=== PATIENT | female | born 1945 | race Two or more races ===

== ENCOUNTER → 2024-07-09 | Outpatient (CLI) | payer MEDICARE, MEDICAID, SELFPAY ==
--- NOTE | 2024-07-09 09:21 | XR_ITS ---
Examination: PA lateral chest 2 views TECHNIQUE: Upright PA lateral chest 2 views Exam date and time: July 09, 2024 0947 hours Comparison August 16, 2019 INDICATIONS: Coughing beginning 3 days ago. FINDINGS: Minimal prominence left ventricle Accentuation basilar bronchovascular markings No lobar pneumonia or pulmonary edema IMPRESSION: Basilar bronchitis pattern
[2024-07-09 10:21] LABS: Basophils % (Auto) 1 % (0-2.5); Eosinophils # (Auto) 0.2 Thou/mm3 (0.0-0.5); Eosinophils % (Auto) 3 % (0-10); Hematocrit 44.2 % (36.0-46.0); Hemoglobin 14.8 g/dL (12.0-16.0); Immature Granulocytes % (Auto) 0 % (0-0); Immature Granulocytes Auto 0.03 Thou/mm3 (0.00-0.00); Lymphocytes # (Auto) 1.8 Thou/mm3 (1.0-4.8); Lymphocytes % (Auto) 25 % (10-50); Mean Corpuscular HGB Conc 33.5 g/dl (31.0-37.0); Mean Corpuscular Hemoglobin 26.8 pg (25.0-35.0); Mean Corpuscular Volume 80 fL (80-100); Monocytes # (Auto) 0.6 Thou/mm3 (0.0-0.8); Monocytes % (Auto) 8 % (0-12); Neutrophils # (Auto) 4.5 Thou/mm3 (1.8-7.7); Neutrophils % (Auto) 63 % (37-80); Nucleated Red Blood Cell % 0 /100 WBC (0); Platelet Count 395 Thou/mm3 (140-440); RDW Standard Deviation 39.8 fL (36.4-46.3); Red Blood Count 5.53 Miln/mm3 (4.00-5.20); White Blood Count 7.2 Thou/mm3 (3.6-11.0)
[2024-07-09 10:44] LABS: Alanine Aminotransferase 20 U/L (10-49); Albumin, Serum 4.6 gm/dL (3.4-4.8); Albumin/Globulin Ratio 1.6 (1.2-2.2); Alkaline Phosphatase 119 U/L (46-116); Anion Gap 10 (7-16); Aspartate Amino Transferase 16 U/L (0-34); BUN/Creatinine Ratio 24 Ratio (12-20); Bilirubin,Total 0.5 mg/dL (0.3-1.2); Blood Urea Nitrogen 17 mg/dL (9-23); Carbon Dioxide 32.6 mMol/L (20.0-31.0); Chloride 98 mMol/L (98-107); Creatinine (Component) 0.7 mg/dL (0.6-1.3); Globulin 2.9 gm/dL (2.3-3.5); Glucose 114 mg/dL (74-106); Osmolality,Calculated 283 (275-295); Sodium 141 mMol/L (136-145); Total Protein 7.5 gm/dL (5.7-8.2); eGFR > 60 See Note
== END | disposition home or self-care (01) ==
LOC: CDIM 09:08 → COPL 09:55
PROVIDERS: PCP Family Medicine; Referring Provider Nurse Practitioner Family; Visit Provider Radiology Diagnostic Radiology
DX: R05.3 Chronic cough (principal); I10 Essential (primary) hypertension
CPT/HCPCS: 36415; 71046; 80053; 85025

== ENCOUNTER 2024-09-30 17:56 | Emergency (ER) | payer MEDICARE, MEDICAID, SELFPAY ==
[2024-09-30 19:05] VITALS: BP 130/77; PULSE 84; RESP 18; TEMP 36.6; O2SAT 95; BMI 36.6
--- NOTE | 2024-09-30 19:33 | XR_ITS ---
Examination: PA chest single view Technique: Upright PA chest single view Exam date and time: September 30, 20244 hrs. Indications: Chest pain today. Findings: Mild enlargement left ventricle Moderate vascular congestion. No lobar pneumonia Significant osteopenia Impression: Moderate vascular congestion
--- NOTE | 2024-09-30 19:33 | XR_ITS ---
Examination: CT abdomen and pelvis without contrast. Coronal 3-D reconstructions. Sagittal 2-D reconstructions. Date and time of exam:September 30, 2024 at 2000 hrs. Indications: Onset left flank pain today CTDI: vol (mGy): 9.04 DLP: (mGycm): 524 Technique: Axial images of the abdomen have been obtained, 3 mm slice thickness Intravenous contrast material has not been administered. Low dose protocols were performed. One or more of the following dose reduction techniques were used; automated exposure control, adjustment of the mA and/or KV according to patient size, use of iterative reconstruction technique. Findings: No focal liver or splenic lesions Absent gallbladder No pancreatic or adrenal mass No renal or ureteral calculi, no hydronephrosis 10 mm fat-containing umbilical hernia No pericecal inflammatory change No bowel obstruction or diverticulitis No bladder mass or bladder calculi Grade 1 anterolisthesis L4 on L5 Retroverted uterus Impression: No renal or ureteral calculi, no hydronephrosis No CT findings of appendicitis bowel obstruction or diverticulitis No bladder mass or bladder calculi
--- NOTE | 2024-09-30 19:33 | EKG_ITS ---
[facility] Test Date: 2024-09-30 Pat Name: MINE TRINH Department: Room: - Gender: Female Senior Cytotechnologist: : 1945 Requested By: Dustin Espinal Order Number: [id number] Reading MD: Dustin Espinal Measurements Intervals [place] Rate: 72 P: 23 NC: 180 QRS: -14 QRSD: 88 T: 16 QT: 364 QTc: 399 Interpretive Statements SINUS RHYTHM LOW QRS VOLTAGE IN PRECORDIAL LEADS [QRS DEFLECTION < 1.0 mV IN CHEST LEADS] POSSIBLE ANTERIOR MYOCARDIAL INFARCTION , PROBABLY OLD [30 ms Q WAVE IN V3/V4, OR R < 0.2 mV IN V4] Compared to ECG 02/24/2023 18:54:15 Low QRS voltage now present Myocardial infarct finding still present /store/S0/[id number].pdf
--- NOTE | 2024-09-30 19:38 | PD.EDBACK ---
ED Back Injury Pain RME/HPI General Chief Complaint: Back Pain/Injury Stated Complaint: LEFT BACK PAIN X YESTERDAY Time Seen by Provider: 09/30/24 19:33 Arrival date/time: 09/30/24 17:56 78F with history of HTN, DM, and dementia presents to ED with L flank pain for 2 days. Patient denies fall/trauma, hematuria/dysuria, weakness, N/V, CP, SOB, and bowel/bladder incontinence. Pain is worse with ROM. Patient went to clinic and was given Tylenol #3 w/o relief. Limitations: no limitations Related Data Previous Rx's ?Medication ?Instructions ?Recorded naproxen 500 mg tablet (Naprosyn) 500 mg PO BID PRN pain #30 tabs 10/31/19 tramadol 37.5 mg-acetaminophen 325 1 tab PO TID PRN pain #20 tabs 05/18/20 mg tablet Allergies Allergy/AdvReac Type Severity Reaction Status Date / Time shrimp Allergy Unknown Verified 09/30/24 18:02 Review of Systems Review of Systems Systems Reviewed: All systems reviewed, normal except as documented Constitutional Constitutional: Reports system reviewed and no additional complaints, except as documented, Denies fever(s) and Denies headache(s) ENT Ears, Nose, Mouth, and Throat: Denies disequilibrium and Denies headache(s) Cardiovascular Cardiovascular: Reports system reviewed and no additional complaints, except as documented, Denies chest pain and Denies dyspnea Respiratory Respiratory: Reports system reviewed and no additional complaints, except as documented, Denies cough and Denies dyspnea Gastrointestinal Gastrointestinal: Reports system reviewed and no additional complaints, except as documented, Denies abdominal pain, Denies nausea and Denies vomiting Musculoskeletal Musculoskeletal: Reports back pain Neurologic Neurologic: Reports system reviewed and no additional complaints, except as documented, Denies confusion, Denies disequilibrium and Denies headache(s) Psychiatric Psychiatric: Denies confusion Past Medical History Past Medical History CARDIAC: Positive Hypertension; Negative Cardiac Disorders or Congestive Heart Failure RESPIRATORY: Negative Chronic Obstructive Pulmonary Disease (COPD) or Asthma GENITOURINARY: Negative Renal Disease MUSCULOSKELETAL: Positive Musculoskeletal Disorders and Arthritis ENDOCRINE: Positive Diabetes Mellitus Type 2 HEMATOLOGIC: Negative Sickle Cell Disease Social History SMOKING STATUS: Never smoker ED Exam General Limitations: Present no limitations General appearance: Present alert and in no apparent distress Head Head exam: Present atraumatic Eye Eye exam: Present normal appearance, PERRL and EOMI ENT ENT exam: Present normal exam, normal oropharynx and mucous membranes moist Neck Neck exam: Present normal inspection, full ROM and trachea midline Chest Chest inspection: Present normal inspection and symmetric chest wall rise Respiratory Respiratory exam: Present normal lung sounds bilaterally Cardiovascular Cardiovascular exam: Present regular rate, normal rhythm and normal heart sounds Abdominal Exam Abdominal exam: Present soft and normal bowel sounds Extremities Exam Extremities exam: Present normal inspection and full ROM Back Exam Back exam: Present full ROM and tenderness Neurological Exam Neurological exam: Present alert, oriented X3 and CN II-XII intact Psychiatric Psychiatric exam: Present normal affect and normal mood Skin Skin exam: Present warm, dry, intact and normal color Course Quality Measures none Orders Category Date Time Status EKG (ED ONLY) *Do not use* NOW Care 09/30/24 19:[address] abdomen pelvis wo con Stat Exams 09/30/24 19:33 Completed EKG (ED Only) Stat Exams 09/30/24 19:33 Draft XR chest 1V portable Stat Exams 09/30/24 19:33 Completed CBC Stat Lab 09/30/24 19:48 Completed Comprehensive Metabolic Panel Stat Lab 09/30/24 19:48 Completed Troponin I Stat Lab 09/30/24 19:48 Completed Urinalysis Stat Lab 09/30/24 20:10 Completed CYCLObenzaPRINE [Flexeril] Med 09/30/24 19:33 Discontinued 5 mg PO X1 ONE Naproxen [Naprosyn] Med 09/30/24 19:33 Discontinued 500 mg PO X1 ONE Vital Signs Vital signs: Vital Signs Temperature 98 F 09/30/24 19:05 Pulse Rate 84 09/30/24 19:05 Respiratory Rate 18 09/30/24 19:05 Blood Pressure 130/77 09/30/24 19:05 Pulse Oximetry (%) 95 09/30/24 19:05 Oxygen Delivery Method Room Air 09/30/24 19:05 O2 at 95% on RA and WNLs Back Pain / Injury MDM Narrative MDM Narrative:: 78F with history of HTN, DM, and dementia presents to ED with L flank pain for 2 days. Patient denies fall/trauma, hematuria/dysuria, weakness, N/V, CP, SOB, and bowel/bladder incontinence. Pain is worse with ROM. Patient went to clinic and was given Tylenol #3 w/o relief. Physical exam reveals mild L flank tenderness. Pain is also with ROM, which is intact. Normal WOB. Patient is afebrile, calm, and alert. CT no acute abnormalities. EKG NSR. CXR unremarkable. Trop normal. No leukocytosis. K mildly low, but appears to be chronic based on previous values. UA clean. Likely MSK-related. Meds improved symptoms. Patient data External records reviewed:: [facility] previous records Clinical information provided by:: patient Social determinants that could affect healthcare access:: none Patient has the following chronic illnesses:: HTN, DM, and dementia How is presenting disease/condition affected by chronic disease/condition?: exacerbated by Evaluation data The following diagnostics were reviewed and interpreted by me:: lab results, radiology exam(s) and EKG tracing(s) Lab and/or radiology exams considered but not ordered:: ordered Interpretation Summary: above Medications / Prescriptions Medications or Prescriptions considered but not ordered:: ordered Medication administrations:: Medication Administration History Discontinued Medications Cyclobenzaprine HCl (Cyclobenzaprine 5 Mg Tablet) 5 mg PO X1 ONE Stop: 09/30/24 19:34 Last Admin: 09/30/24 20:22 Dose: 5 mg Documented By: CHRIS Naproxen (Naproxen 250 Mg Tablet) 500 mg PO X1 ONE Stop: 09/30/24 19:34 Last Admin: 09/30/24 20:23 Dose: 500 mg Documented By: CHRIS above Consultations Consultation(s) initiated? (list below): No Diagnosis Differential diagnosis back pain/injury: lumbar radiculopathy, sciatica, strain of lumbar region, renal colic, pyelonephritis, thoracic back pain, AAA, discitis and other (kidney stone, UTI, ACS, back pain) Most likely diagnosis given after review of the tests above:: back pain Admission Indicated Admission indicated?: not indicated Admission Request Was there a request for admission?: No Disposition Plan Disposition Plan: Discharge Discharge Attestation Discharge Attestation: The patient and all family members were given an opportunity to ask questions and understood the discharge instructions. Discharge instructions specifically effects, indications for sooner follow up or return to the emergency department, and the expected course of current diagnosis. Patient condition: Stable Discharge Plan Plan Patient Disposition: HOME (Self Care) Disposition Comment: Stable Prescriptions/Referrals Prescriptions/Med Rec: No Action tramadol-acetaminophen 37.5-325 mg tablet 1 tab PO TID PRN (Reason: pain) Qty: 20 0RF naproxen [Naprosyn] 500 mg tablet 500 mg PO BID PRN (Reason: pain) Qty: 30 0RF Referrals: No Primary/Family,Physician [Primary Care Provider] - In 1 week Problem List Clinical Impression: Back pain Patient/Caregiver Discharge Instructions Education Materials: ED Back Pain (Acute or Chronic) Additional Instructions: Please follow-up with PCP within 24-48 hours and return immediately if symptoms worsen. If problem persists, recommend outpatient PT and/or MRI follow-up. In the meantime, rest, use ice/heat, and/or compression. Print Language: Georgian Stand Alone Forms: Patient Portal Info Letter PA/STUDENT ACCOUNTS MANAGER Supervising Physician PA/THEODORE Supervising Physician: Dr. Carvalho
[2024-09-30] MEDS: CYCLObenzaPRINE 5 MG TABLET PO (20:22)
[2024-09-30] MEDS: NAPROXEN 250 MG TABLET 500 MG PO (20:23)
[2024-09-30 20:33] LABS: Collection Type, Urine Clean Catch
[2024-09-30 20:39] LABS: Basophils % (Auto) 1 % (0-2.5); Eosinophils # (Auto) 0.1 Thou/mm3 (0.0-0.5); Eosinophils % (Auto) 1 % (0-10); Hematocrit 42.3 % (36.0-46.0); Hemoglobin 14.2 g/dL (12.0-16.0); Immature Granulocytes % (Auto) 0 % (0-0); Immature Granulocytes Auto 0.03 Thou/mm3 (0.00-0.00); Lymphocytes # (Auto) 2.2 Thou/mm3 (1.0-4.8); Lymphocytes % (Auto) 26 % (10-50); Mean Corpuscular HGB Conc 33.6 g/dl (31.0-37.0); Mean Corpuscular Hemoglobin 27.4 pg (25.0-35.0); Mean Corpuscular Volume 82 fL (80-100); Monocytes # (Auto) 0.8 Thou/mm3 (0.0-0.8); Monocytes % (Auto) 9 % (0-12); Neutrophils # (Auto) 5.4 Thou/mm3 (1.8-7.7); Neutrophils % (Auto) 63 % (37-80); Nucleated Red Blood Cell % 0 /100 WBC (0); Platelet Count 365 Thou/mm3 (140-440); RDW Standard Deviation 40.4 fL (36.4-46.3); Red Blood Count 5.18 Miln/mm3 (4.00-5.20); White Blood Count 8.7 Thou/mm3 (3.6-11.0)
[2024-09-30 20:47] LABS: Bacteria,Urine Rare; Bilirubin,Urine Negative (Negative); Blood,Urine Negative (Negative); Clarity,Urine Clear (Clear/Hazy); Color,Urine Colorless (Lt Yel-Yel); Glucose, Urine 4+ (Negative); Ketones,Urine Negative (Negative); Leukocyte Esterase,Urine Positive (Negative); Nitrite,Urine Negative (Negative); PH,Urine 6.5 (5.0-7.0); Protein,Urine Negative (Neg - Trace); RBC,Urine 1 /hpf (0-3); Specific Gravity,Urine 1.011 (1.001-1.035); Squamous Epithelial Cell,Urine 3 /hpf (0-5); Urobilinogen,Urine Negative mg/dL (0.0-1.0); WBC,Urine 4 /hpf (0-5)
[2024-09-30 20:47] LABS: Alanine Aminotransferase 13 U/L (10-49); Albumin, Serum 4.3 gm/dL (3.4-4.8); Albumin/Globulin Ratio 1.2 (1.2-2.2); Alkaline Phosphatase 103 U/L (46-116); Anion Gap 10 (7-16); Aspartate Amino Transferase 17 U/L (0-34); BUN/Creatinine Ratio 26 Ratio (12-20); Bilirubin,Total 0.4 mg/dL (0.3-1.2); Blood Urea Nitrogen 18 mg/dL (9-23); Calcium 10.1 mg/dL (8.3-10.6); Calcium (Corrected) 10.1 mg/dL (8.5-10.1); Carbon Dioxide 30.8 mMol/L (20.0-31.0); Chloride 100 mMol/L (98-107); Creatinine (Component) 0.7 mg/dL (0.6-1.3); Estimated Creatinine Clearance 54.3 mL/min (>60); Globulin 3.5 gm/dL (2.3-3.5); Glucose 107 mg/dL (74-106); Osmolality,Calculated 283 (275-295); Potassium 3.3 mMol/L (3.4-5.1); Sodium 141 mMol/L (136-145); Total Protein 7.8 gm/dL (5.7-8.2); Troponin I < 0.002 ng/mL (0.0-0.045); eGFR > 60 See Note
== END 2024-09-30 21:38 | disposition home or self-care (01) ==
PROVIDERS: Physician Assistant; Emergency Provider Emergency Medicine
DX: M54.9 Dorsalgia, unspecified (principal); R10.9 Unspecified abdominal pain; I10 Essential (primary) hypertension; E11.9 Type 2 diabetes mellitus without complications; F03.90 Unspecified dementia, unspecified severity, without behavioral disturbance, psychotic disturbance, mood disturbance, and anxiety
CPT/HCPCS: 36415; 71045; 74176; 80053; 81001; 84484; 85025; 93005; 99284; A9270

== ENCOUNTER 2024-10-01 07:31 | Emergency (ER) | payer MEDICARE, MEDICAID, SELFPAY ==
[2024-10-01 07:42] VITALS: BP 127/70; PULSE 73; RESP 18; TEMP 36.5; O2SAT 96; BMI 34.9
--- NOTE | 2024-10-01 07:51 | EDNOTE_ITS ---
ED Back Injury Pain RME/HPI General Chief Complaint: Abdominal Pain Stated Complaint: Abdominal pain Time Seen by Provider: 10/01/24 07:47 Arrival date/time: 10/01/24 07:31 78-year-old female presents emergency department today for complaints of left- sided back pain and lower abdominal pain patient was seen last night and had full workup. Patient reports no right side abdominal pain no fever patient reports pain is worse with movement patient reports no chest pain or shortness of breath Limitations: no limitations Related Data Previous Rx's ?Medication ?Instructions ?Recorded naproxen 500 mg tablet (Naprosyn) 500 mg PO BID PRN pa in #30 tabs 10/31/19 tramadol 37.5 mg-acetaminophen 325 1 tab PO TID PRN pa in #20 tabs 05/18/20 mg tablet cyclobenzaprine 5 mg tablet 5 mg PO TID PRN muscle spa sm #30 10/01/24 tabs cyclobenzaprine 5 mg tablet 5 mg PO TID PRN muscle spa sm #30 10/01/24 tabs ibuprofen 600 mg tablet 600 mg PO Q6H #30 tabs 10/01 ibuprofen 600 mg tablet 600 mg PO Q6H #30 tabs 10/01 tramadol 50 mg tablet 50 mg PO BID PRN pain #6 tab s 10/01/24 tramadol 50 mg tablet 50 mg PO BID PRN pain #6 tab s 10/01/24 Allergies Allergy/AdvReac Type Severity Reaction Status Date / Time shrimp Allergy Unknown Verified 10/01/24 07:36 Review of Systems Review of Systems Systems Reviewed: All systems reviewed, normal except as documented Constitutional Constitutional: Reports system reviewed and no additional complaints, except as documented, Denies fever(s) and Denies headache(s) Eyes Eyes: Reports system reviewed and no additional complaints, except as documented and Denies blurry vision ENT Ears, Nose, Mouth, and Throat: Reports system reviewed and no additional complaints, except as documented, Denies headache(s), Denies nasal congestion and Denies nasal discharge Cardiovascular Cardiovascular: Reports system reviewed and no additional complaints, except as documented, Denies chest pain and Denies dyspnea Respiratory Respiratory: Reports system reviewed and no additional complaints, except as do cumented, Denies chest congestion, Denies cough and Denies dyspnea Gastrointestinal Gastrointestinal: Reports system reviewed and no additional complaints, except as documented and Denies abdominal pain Musculoskeletal Musculoskeletal: Reports system reviewed and no additional complaints, except as documented and Reports back pain Integumentary/Breasts Skin/Breast: Reports system reviewed and no additional complaints, except as documented and Denies rash Neurologic Neurologic: Reports system reviewed and no additional complaints, except as documented, Reports as per HPI and Denies headache(s) Past Medical History Past Medical History CARDIAC: Positive Hypertension; Negative Cardiac Disorders or Congestive Heart Failure RESPIRATORY: Negative Chronic Obstructive Pulmonary Disease (COPD) or Asthma GENITOURINARY: Negative Renal Disease MUSCULOSKELETAL: Positive Musculoskeletal Disorders and Arthritis ENDOCRINE: Positive Diabetes Mellitus Type 2; Negative Diabetes Mellitus Type 1 HEMATOLOGIC: Negative Sickle Cell Disease Social History SMOKING STATUS: Never smoker ED Exam General Limitations: Present no limitations General appearance: Present alert and in no apparent distress Head Head exam: Present atraumatic Eye Eye exam: Present normal appearance, PERRL and EOMI ENT ENT exam: Present normal exam, normal oropharynx and mucous membranes moist Neck Neck exam: Present normal inspection, full ROM and trachea midline Chest Chest inspection: Present normal inspection and symmetric chest wall rise Respiratory Respiratory exam: Present normal lung sounds bilaterally Cardiovascular Cardiovascular exam: Present regular rate, normal rhythm and normal heart sounds Abdominal Exam Abdominal exam: Present soft and normal bowel sounds Extremities Exam Extremities exam: Present normal inspection and full ROM Back Exam Back exam: Present normal inspection, full ROM, tenderness, muscle spasm and paraspinal tenderness; Absent CVA tenderness (R) or CVA tenderness (L) Neurological Exam Neurological exam: Present alert, oriented X3 and CN II-XII intact Psychiatric Psychiatric exam: Present normal affect and normal mood Skin Skin exam: Present warm, dry, intact and normal color Course Quality Measures none Orders Category Date Time Status Ketorolac Inj [Toradol Inj] Med 10/01/24 07:47 Discontinued 30 mg IM X1 ONE Vital Signs Vital signs: Vital Signs Temperature 97.7 F 10/01/24 07:42 Pulse Rate 73 10/01/24 07:42 Respiratory Rate 18 10/01/24 07:42 Blood Pressure 127/70 10/01/24 07:42 Pulse Oximetry (%) 96 10/01/24 07:42 Oxygen Delivery Method Room Air 10/01/24 07:42 O2 saturation 96% room air within normal limits Back Pain / Injury MDM Narrative MDM Narrative:: 78-year-old female presents emergency department today for complaints of left- sided back pain and lower abdominal pain patient was seen last night and had full workup. Patient reports no right side abdominal pain no fever patient reports pain is worse with movement patient reports no chest pain or shortness of breath I reviewed the patient's lab work and imaging from yesterday is unremarkable Patient given Toradol for pain and discharged home today Symptoms are highly consistent with muscle spasm Patient discharged home in no distress to follow-up with primary care doctor in the next 24 to 48 hours and for any worsening symptoms to return to the ER immediately Patient data External records reviewed:: [facility] previous records Clinical information provided by:: patient Social determinants that could affect healthcare access:: none Patient has the following chronic illnesses:: None How is presenting disease/condition affected by chronic disease/condition?: no chronic disease Evaluation data The following diagnostics were reviewed and interpreted by me:: lab results and radiology exam(s) Lab and/or radiology exams considered but not ordered:: Labs radiology obtain Interpretation Summary: Reviewed by me Medications / Prescriptions Medications or Prescriptions considered but not ordered:: Given Medication administrations:: Medication Administration History Discontinued Medications Ketorolac Tromethamine (Ketorolac Inj 30 Mg/Ml Vial) 30 mg IM X1 ONE Stop: 10/01/24 07:48 Last Admin: 10/01/24 08:14 Dose: 30 mg Documented By: SL Given Consultations Consultation(s) initiated? (list below): No Diagnosis Differential diagnosis back pain/injury: lumbar radiculopathy, sciatica and strain of lumbar region Most likely diagnosis given after review of the tests above:: Back pain Admission Indicated Admission indicated?: not indicated Admission Request Was there a request for admission?: No Disposition Plan Disposition Plan: Discharge Discharge Attestation Discharge Attestation: The patient and all family members were given an opportunity to ask questions and understood the discharge instructions. Discharge instructions specifically effects, indications for sooner follow up or return to the emergency department, and the expected course of current diagnosis. Patient condition: Stable Discharge Plan Plan Patient Disposition: HOME (Self Care) Disposition Comment: Stable Prescriptions/Referrals Prescriptions/Med Rec: New tramadol 50 mg tablet 50 mg PO BID PRN (Reason: pain) Qty: 6 0RF ibuprofen 600 mg tablet 600 mg PO Q6H Qty: 30 0RF cyclobenzaprine 5 mg tablet 5 mg PO TID PRN (Reason: muscle spasm) Qty: 30 0RF tramadol 50 mg tablet 50 mg PO BID PRN (Reason: pain) Qty: 6 0RF ibuprofen 600 mg tablet 600 mg PO Q6H Qty: 30 0RF cyclobenzaprine 5 mg tablet 5 mg PO TID PRN (Reason: muscle spasm) Qty: 30 0RF No Action tramadol-acetaminophen 37.5-325 mg tablet 1 tab PO TID PRN (Reason: pain) Qty: 20 0RF naproxen [Naprosyn] 500 mg tablet 500 mg PO BID PRN (Reason: pain) Qty: 30 0RF Problem List Clinical Impression: Back pain Patient/Caregiver Discharge Instructions Education Materials: ED Back Care Tips Additional Instructions: Please follow up with your primary care doctor in the next 24-48hrs for any worsening symptoms return here immediately Print Language: Bahraini Stand Alone Forms: Donna Award Info., Patient Portal Info Letter PA/RESEARCH HYDROLOGIST Supervising Physician PA/RESEARCH HYDROLOGIST Supervising Physician: dr young
[2024-10-01] MEDS: KETOROLAC INJ 30 MG/ML VIAL IM (08:14)
== END 2024-10-01 09:22 | disposition home or self-care (01) ==
PROVIDERS: Emergency Provider Emergency Medicine
DX: M54.9 Dorsalgia, unspecified (principal); R10.32 Left lower quadrant pain
CPT/HCPCS: 96372; 99283; J1885

== ENCOUNTER 2024-11-24 20:54 | Emergency (ER) | payer MEDICARE, MEDICAID, SELFPAY ==
[2024-11-24 22:18] VITALS: BP 116/72; PULSE 79; RESP 16; TEMP 36.9; O2SAT 95
--- NOTE | 2024-11-24 22:57 | XR_ITS ---
Examination: PA chest single view TECHNIQUE: Upright PA chest single view Date and time: November 24, 2024 1128 hours Comparison September 30, 2024 INDICATIONS: Dizziness today FINDINGS: Mild prominence of ventricle Minor atelectasis in the lower lung zones and Mild elevation right hemidiaphragm. No lobar pneumonia or pulmonary edema Moderate osteopenia IMPRESSION: No pneumonia or pulmonary edema
--- NOTE | 2024-11-24 22:57 | XR_ITS ---
Examination: CT brain head without contrast. 2-D sagittal coronal reconstructions Date and time of exam:November 24, 2024, 11:36 PM Comparison October 22, 2010 CTDI: vol (mGy):42.7 DLP: (mGycm):786 Technique: Multiple CT axial sections of the brain have been obtained, 5 mm slice thickness. Contrast has not been administered. 2-D sagittal, coronal reconstructions have been obtained Low dose protocols were performed. One or more of the following dose reduction techniques were used; automated exposure control, adjustment of the mA and/or KV according to patient size, use of iterative reconstruction technique. Findings: No significant ventricular enlargement. Intra-axial or extra-axial hemorrhage density is not seen. No mass effect or midline shift Basal cisterns are not remarkable. Fourth ventricle is midline. Cranial vault intact. Impression: Negative for acute hemorrhage, mass effect or midline shift
--- NOTE | 2024-11-24 22:57 | XR_ITS ---
Examination: CT cervical spine without contrast 2-D sagittal reconstructions 2-D coronal reconstructions 3-D reconstructions. Exam date and time:November 24, 2024, 11:36 PM INDICATIONS: Patient fell today with injury to the neck, neck pain CTDI:vol (mGy) 8.76 DLP: (mGycm) 173 Technique: Multiple 2 mm axial sections of the cervical spine have been obtained. The coronal and sagittal reconstructions have been obtained. 3-D reconstructions have been obtained. Low dose protocols were performed. One or more of the following dose reduction techniques were used; automated exposure control, adjustment of the mA and/or KV according to patient size, use of iterative reconstruction technique. Findings: Axial sections demonstrate intact base of the skull. C1 exhibit satisfactory relationship to the odontoid. No acute cervical vertebral body fracture seen. Alignment posterior spinous processes satisfactory. Impression: No acute cervical fracture.
--- NOTE | 2024-11-24 22:57 | EKG_ITS ---
[facility] Test Date: 2024-11-24 Pat Name: MINE TRINH Department: Room: - Gender: Female Director Of In Service Education: : 1945 Requested By: Dustin Espinal Order Number: [id number] Reading MD: Dustin Espinal Measurements Intervals [place] Rate: 70 P: 14 TN: 169 QRS: -9 QRSD: 82 T: 15 QT: 366 QTc: 395 Interpretive Statements SINUS RHYTHM LOW QRS VOLTAGE IN PRECORDIAL LEADS [QRS DEFLECTION < 1.0 mV IN CHEST LEADS] POSSIBLE ANTERIOR MYOCARDIAL INFARCTION , PROBABLY OLD [30 ms Q WAVE IN V3/V4, OR R < 0.2 mV IN V4] Compared to ECG 09/30/2024 19:39:09 No significant changes /store/S0/[id number]/[id number]
--- NOTE | 2024-11-24 22:58 | EDRME_ITS ---
Rapid Medical Screening Exam [facility] Arrival date/time: 11/24/24 20:54 78F with history of HTN and DM presents to ED with dizziness episode today that lead to fall in bathroom. Patient hit her head, but denies LOC, AMS, seizures, N/V, and vision changes. Patient is no longer dizzy. Chief Complaint: Dizziness Vital signs: Vital Signs Temperature 98.5 F 11/24/24 22:18 Pulse Rate 79 11/24/24 22:18 Respiratory Rate 16 11/24/24 22:18 Blood Pressure 116/72 11/24/24 22:18 Pulse Oximetry (%) 95 11/24/24 22:18 Oxygen Delivery Method Room Air 11/24/24 22:18
[2024-11-24 23:15] LABS: Basophils % (Auto) 0 % (0-2.5); Eosinophils # (Auto) 0.1 Thou/mm3 (0.0-0.5); Eosinophils % (Auto) 1 % (0-10); Hematocrit 41.9 % (36.0-46.0); Hemoglobin 14.5 g/dL (12.0-16.0); Immature Granulocytes % (Auto) 0 % (0-0); Immature Granulocytes Auto 0.03 Thou/mm3 (0.00-0.00); Lymphocytes # (Auto) 2.8 Thou/mm3 (1.0-4.8); Lymphocytes % (Auto) 31 % (10-50); Mean Corpuscular HGB Conc 34.6 g/dl (31.0-37.0); Mean Corpuscular Hemoglobin 27.5 pg (25.0-35.0); Mean Corpuscular Volume 80 fL (80-100); Monocytes # (Auto) 0.6 Thou/mm3 (0.0-0.8); Monocytes % (Auto) 7 % (0-12); Neutrophils # (Auto) 5.3 Thou/mm3 (1.8-7.7); Neutrophils % (Auto) 60 % (37-80); Nucleated Red Blood Cell % 0 /100 WBC (0); Platelet Count 329 Thou/mm3 (140-440); Red Blood Count 5.27 Miln/mm3 (4.00-5.20); White Blood Count 8.8 Thou/mm3 (3.6-11.0)
[2024-11-24 23:46] LABS: B-Type Natriuretic Peptide 34 pg/mL (0-100)
[2024-11-24 23:47] LABS: Alanine Aminotransferase 16 U/L (10-49); Albumin, Serum 4.2 gm/dL (3.4-4.8); Albumin/Globulin Ratio 1.5 (1.2-2.2); Alkaline Phosphatase 111 U/L (46-116); Anion Gap 12 (7-16); Aspartate Amino Transferase 17 U/L (0-34); BUN/Creatinine Ratio 20 Ratio (12-20); Bilirubin,Total 0.3 mg/dL (0.3-1.2); Blood Urea Nitrogen 14 mg/dL (9-23); Calcium 8.9 mg/dL (8.3-10.6); Calcium (Corrected) 8.9 mg/dL (8.5-10.1); Carbon Dioxide 28.2 mMol/L (20.0-31.0); Chloride 103 mMol/L (98-107); Creatinine (Component) 0.7 mg/dL (0.6-1.3); Globulin 2.8 gm/dL (2.3-3.5); Glucose 126 mg/dL (74-106); Magnesium 2.2 mg/dL (1.6-2.6); Osmolality,Calculated 287 (275-295); Potassium 3.3 mMol/L (3.4-5.1); Sodium 143 mMol/L (136-145); Troponin I < 0.002 ng/mL (0.0-0.045); eGFR > 60 See Note
[2024-11-25 00:21] LABS: Collection Type, Urine Clean Catch; RBC,Urine 0 /hpf (0-3); WBC,Urine 0 /hpf (0-5)
[2024-11-25 00:33] LABS: Bilirubin,Urine Negative (Negative); Blood,Urine Negative (Negative); Clarity,Urine Clear (Clear/Hazy); Color,Urine Lt-Yellow (Lt Yel-Yel); Culture Indicated,Urine Not Indicated; Glucose, Urine 4+ (Negative); Ketones,Urine Negative (Negative); Leukocyte Esterase,Urine Negative (Negative); Nitrite,Urine Negative (Negative); Protein,Urine Negative (Neg - Trace); Specific Gravity,Urine 1.027 (1.001-1.035); Squamous Epithelial Cell,Urine 2 /hpf (0-5); Urobilinogen,Urine Negative mg/dL (0.0-1.0)
--- NOTE | 2024-11-25 01:54 | PD.EDDIZZY ---
ED Dizzyness RME/HPI General Chief Complaint: Dizziness Stated Complaint: DIZZINESS, FALL, HEAD INJURY Arrival date/time: 11/24/24 20:54 RME / HPI RME / HPI Narrative: 11/24/24 20:54 78F with history of HTN and DM presents to ED with dizziness episode today that lead to fall in bathroom. Patient hit her head, but denies LOC, AMS, seizures, N/V, and vision changes. Patient is no longer dizzy. ------ Dr. Reese?s Main ED Evaluation: 78yo female with a history of HTN, DM presents to the ED for a chief complaint of ground-level fall. Grandson states the patient was getting up off the stool in the shower when she slipped and fell, reporting she hit her head. Patient denies any loss of consciousness. Patient endorses having a headache. Patient denies any neck pain, chest pain, abdominal pain, extremity pain or any other associated symptoms. Related Data Previous Rx's ?Medication ?Instructions ?Recorded naproxen 500 mg tablet (Naprosyn) 500 mg PO BID PRN pain #30 tabs 10/31/19 tramadol 37.5 mg-acetaminophen 325 1 tab PO TID PRN pain #20 tabs 05/18/20 mg tablet cyclobenzaprine 5 mg tablet 5 mg PO TID PRN muscle spasm #30 10/01/24 tabs cyclobenzaprine 5 mg tablet 5 mg PO TID PRN muscle spasm #30 10/01/24 tabs ibuprofen 600 mg tablet 600 mg PO Q6H #30 tabs 10/01/24 ibuprofen 600 mg tablet 600 mg PO Q6H #30 tabs 10/01/24 tramadol 50 mg tablet 50 mg PO BID PRN pain #6 tabs 10/01/24 tramadol 50 mg tablet 50 mg PO BID PRN pain #6 tabs 10/01/24 Allergies Allergy/AdvReac Type Severity Reaction Status Date / Time shrimp Allergy Unknown Verified 11/24/24 20:55 Review of Systems Review of Systems Systems Reviewed: All systems reviewed, normal except as documented Past Medical History Past Medical History CARDIAC: Positive Hypertension; Negative Cardiac Disorders or Congestive Heart Failure RESPIRATORY: Negative Chronic Obstructive Pulmonary Disease (COPD) or Asthma GENITOURINARY: Negative Renal Disease MUSCULOSKELETAL: Positive Musculoskeletal Disorders and Arthritis ENDOCRINE: Positive Diabetes Mellitus Type 2; Negative Diabetes Mellitus Type 1 HEMATOLOGIC: Negative Sickle Cell Disease Social History SMOKING STATUS: Never smoker ED Exam Narrative Physical exam: GENERAL APPEARANCE: alert and oriented x 4, well-developed, well-nourished, no acute distress VITALS: All vitals were reviewed and the pulse ox is 95% on room air, which is normal according to my interpretation. HEENT: Normocephalic, atraumatic; pupils equal, round, reactive to light; EOMI; mucous membranes pink, moist; oropharynx clear NECK: Supple LUNGS: CTABL; no wheezes, no rales, no rhonchi HEART: Regular rate, regular rhythm; normal S1, S2; no murmurs ABDOMEN: non distended; normal BS; soft, no tenderness, no guarding, no rebound; no masses, no organomegaly, no hernia BACK: no CVA tenderness EXTREMITIES: atraumatic; no edema NEUROLOGIC: awake; alert and oriented x4; cranial nerves II-XII grossly intact; no focal sensory or motor deficits PSYCHIATRIC: appropriate mood and affect SKIN: warm, dry, normal color; no rashes Course Quality Measures none Orders Category Date Time Status Blood glucose [Bedside Blood Glucose] NOW Care 11/24/24 22:58 Active EKG (ED ONLY) *Do not use* NOW Care 11/24/24 22:[address] cervical spine wo con Stat Exams 11/24/24 22:[address] head/brain wo con Stat Exams 11/24/24 22:57 Completed EKG (ED Only) Stat Exams 11/24/24 22:57 Draft XR chest 1V portable Stat Exams 11/24/24 22:57 Completed B-Type Natriuretic Peptide Stat Lab 11/24/24 23:02 Completed CBC Stat Lab 11/24/24 23:02 Completed Comprehensive Metabolic Panel Stat Lab 11/24/24 23:02 Completed Magnesium Stat Lab 11/24/24 23:02 Completed Troponin I Stat Lab 11/24/24 23:02 Completed Urinalysis, C/S if Indicated Stat Lab 11/25/24 00:06 Completed Vital Signs Vital signs: Vital Signs Temperature 98.5 F 11/24/24 22:18 Pulse Rate 79 11/24/24 22:18 Respiratory Rate 16 11/24/24 22:18 Blood Pressure 116/72 11/24/24 22:18 Pulse Oximetry (%) 95 11/24/24 22:18 Oxygen Delivery Method Room Air 11/24/24 22:18 Dizziness MDM Narrative MDM Narrative:: Scribe Attestation: 11/25/24 Khushi Walden am scribing for and in the presence of Dr. Reese. Patient data External records reviewed:: [facility] previous records (Per chart review, patient was seen here on 10/01/24 for back pain.) Clinical information provided by:: patient Social determinants that could affect healthcare access:: none Patient has the following chronic illnesses:: HTN, DM How is presenting disease/condition affected by chronic disease/condition?: uneffected by Evaluation data The following diagnostics were reviewed and interpreted by me:: lab results, radiology exam(s) and EKG tracing(s) Lab and/or radiology exams considered but not ordered:: none Interpretation Summary: CBC normal, Potassium 3.3, Troponin normal, BNP normal, UA unremarkable. EKG done at 2031, NSR, rate of 70, left axis deviation, Q waves in lead III and avF, no ectopy, no acute ischemia, according to my interpretation. [facility] Report Signed Patient: MINE TRINH. Record#: [id number] Birthdate: 1945 Age/Sex: 78 / F Location: [facility] Attending Dr: Ordering Physician: Dustin Espinal PA-C Date of Service: 11/24/24 Procedure(s): CT head/brain wo con Accession Number(s): [id number] cc: Murtaza Tavarez MD; NO PRIMARY/FAMILY,PHYSICIAN; Dustin Espinal PA-C~ Examination: CT brain head without contrast. 2-D sagittal coronal reconstructions Date and time of exam:November 24, 2024, 11:36 PM Comparison October 22, 2010 CTDI: vol (mGy):42.7 DLP: (mGycm):786 Technique: Multiple CT axial sections of the brain have been obtained, 5 mm slice thickness. Contrast has not been administered. 2-D sagittal, coronal reconstructions have been obtained Low dose protocols were performed. One or more of the following dose reduction techniques were used; automated exposure control, adjustment of the mA and/or KV according to patient size, use of iterative reconstruction technique. Findings: No significant ventricular enlargement. Intra-axial or extra-axial hemorrhage density is not seen. No mass effect or midline shift Basal cisterns are not remarkable. Fourth ventricle is midline. Cranial vault intact. Impression: Negative for acute hemorrhage, mass effect or midline shift Dictated By: Murtaza Tavarez MD Signed By: <Electronically signed by Murtaza Tavarez MD in [place]> 11/24/24 2357 [facility] Report Signed Patient: MINE TRINH [facility]. Record#: [id number] Birthdate: 1945 Age/Sex: 78 / F Location: [facility] Attending Dr: Ordering Physician: Dustin Espinal PA-C Date of Service: 11/24/24 Procedure(s): XR chest 1V portable Accession Number(s): [id number] cc: Murtaza Tavarez MD; NO PRIMARY/FAMILY,PHYSICIAN; Dustin Espinal PA-C~ Examination: PA chest single view TECHNIQUE: Upright PA chest single view Date and time: November 24, 2024 1128 hours Comparison September 30, 2024 INDICATIONS: Dizziness today FINDINGS: Mild prominence of ventricle Minor atelectasis in the lower lung zones and Mild elevation right hemidiaphragm. No lobar pneumonia or pulmonary edema Moderate osteopenia IMPRESSION: No pneumonia or pulmonary edema Dictated By: Murtaza Tavarez MD Signed By: <Electronically signed by Murtaza Tavarez MD in [place]> 11/24/24 2349 [facility] Report Signed Patient: MINE TRINH [facility]. Record#: [id number] Birthdate: 1945 Age/Sex: 78 / F Location: [facility] Attending Dr: Ordering Physician: Dustin Espinal PA-C Date of Service: 11/24/24 Procedure(s): CT cervical spine wo con Accession Number(s): [id number] cc: Murtaza Tavarez MD; NO PRIMARY/FAMILY,PHYSICIAN; Dustin Espinal PA-C~ Examination: CT cervical spine without contrast 2-D sagittal reconstructions 2-D coronal reconstructions 3-D reconstructions. Exam date and time:November 24, 2024, 11:36 PM INDICATIONS: Patient fell today with injury to the neck, neck pain CTDI:vol (mGy) 8.76 DLP: (mGycm) 173 Technique: Multiple 2 mm axial sections of the cervical spine have been obtained. The coronal and sagittal reconstructions have been obtained. 3-D reconstructions have been obtained. Low dose protocols were performed. One or more of the following dose reduction techniques were used; automated exposure control, adjustment of the mA and/or KV according to patient size, use of iterative reconstruction technique. Findings: Axial sections demonstrate intact base of the skull. C1 exhibit satisfactory relationship to the odontoid. No acute cervical vertebral body fracture seen. Alignment posterior spinous processes satisfactory. Impression: No acute cervical fracture. Dictated By: Murtaza Tavarez MD Signed By: <Electronically signed by Murtaza Tavarez MD in [place]> 11/24/24 8452 Medications / Prescriptions Medications or Prescriptions considered but not ordered:: none Medication administrations:: none Consultations Consultation(s) initiated? (list below): No Diagnosis Dizziness Differential Diagnosis: other (skull fracture, ICH, c-spine fracture, contusion) Most likely diagnosis given after review of the tests above:: see clinical impression below Admission Indicated Admission indicated?: not indicated Explain why admission is indicated or not indicated:: Diagnostics are unremarkable. Patient is stable to be discharged home. Admission Request Was there a request for admission?: No Disposition Plan Disposition Plan: Discharge Discharge Attestation Discharge Attestation: The patient and all family members were given an opportunity to ask questions and understood the discharge instructions. Discharge instructions specifically effects, indications for sooner follow up or return to the emergency department, and the expected course of current diagnosis. Patient condition: Stable Discharge Plan Plan Patient Disposition: HOME (Self Care) Discharge Disposition comment: Stable for discharge home Patient condition on transfer: Stable Prescriptions/Referrals Prescriptions/Med Rec: No Action tramadol-acetaminophen 37.5-325 mg tablet 1 tab PO TID PRN (Reason: pain) Qty: 20 0RF naproxen [Naprosyn] 500 mg tablet 500 mg PO BID PRN (Reason: pain) Qty: 30 0RF tramadol 50 mg tablet 50 mg PO BID PRN (Reason: pain) Qty: 6 0RF ibuprofen 600 mg tablet 600 mg PO Q6H Qty: 30 0RF cyclobenzaprine 5 mg tablet 5 mg PO TID PRN (Reason: muscle spasm) Qty: 30 0RF tramadol 50 mg tablet 50 mg PO BID PRN (Reason: pain) Qty: 6 0RF ibuprofen 600 mg tablet 600 mg PO Q6H Qty: 30 0RF cyclobenzaprine 5 mg tablet 5 mg PO TID PRN (Reason: muscle spasm) Qty: 30 0RF Referrals: [facility] [Provider Group] - In 1 week Problem List Clinical Impression: Ground-level fall, Contusion of face, scalp and neck Patient/Caregiver Discharge Instructions Discharge Activity: activity as tolerated Education Materials: Bruises (Contusions), ED Mechanical Fall, ED Head Injury (Adult) Additional Instructions: Please return to the emergency department if you have any worsening or any further medical problems and we will help you. Otherwise you should follow-up with your primary care doctor or in the [facility] within the next several days please Tonight the CT scan of your head and neck both were very reassuring. There is no signs of neck fracture or skull fracture. There is no bleeding inside the skull. Print Language: Guatemalan Stand Alone Forms: Donna Award Info., Patient Portal Info Letter
[2024-11-25 02:13] VITALS: BP 129/82; PULSE 60; RESP 17; TEMP 36.9; O2SAT 96
== END 2024-11-25 02:18 | disposition home or self-care (01) ==
PROVIDERS: Physician Assistant; Emergency Provider Emergency Medicine
DX: S00.83XA Contusion of other part of head, initial encounter (principal); W18.2XXA Fall in (into) shower or empty bathtub, initial encounter; Y93.E1 Activity, personal bathing and showering; S10.93XA Contusion of unspecified part of neck, initial encounter; S00.03XA Contusion of scalp, initial encounter; E11.9 Type 2 diabetes mellitus without complications; I10 Essential (primary) hypertension; R42 Dizziness and giddiness
CPT/HCPCS: 36415; 70450; 71045; 72125; 80053; 81001; 83735; 83880; 84484; 85025; 93005; 99284